=== PATIENT | male | born 1995 | race Caucasian/White ===

== ENCOUNTER 2019-03-29 03:47 | Emergency (ER) | payer OTHER ==
[~2019-03-29] VITALS: Ht 170.2 cm; Wt 57.6 kg
[2019-03-29 03:51] VITALS: BP 133/98
--- NOTE | 2019-03-29 03:57 | NUR ---
PT AMBULATED TO BED #9
--- NOTE | 2019-03-29 04:01 | NUR ---
Dr. Carmona examining patient.
[2019-03-29 04:07] VITALS: BP 133/98
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
--- NOTE | 2019-03-29 04:12 | NUR ---
WRIST AND FOREARM SPLINT PLACED ON PT R WRIST. +CSM
--- NOTE | 2019-03-29 04:13 | NUR ---
EMT AT BEDSIDE.
[2019-03-29] MEDS ORDERED: IBUPROFEN 600 MG TAB PO ONE (04:15)
--- NOTE | 2019-03-29 04:22 | NUR ---
Patient discharged with v/s stable. Written and verbal after care instructions given and explained. Patient alert, oriented and verbalized understanding of instructions. Ambulatory with steady gait. All questions addressed prior to discharge. ID band removed. Patient advised to follow up with PMD. Rx of NAPROSYN 500MG given. Patient educated on indication of medication including possible reaction and side effects. Opportunity to ask questions provided and answered.
== END 2019-03-29 04:22 | disposition home or self-care (01) ==
LOC: MED 03:47
DX: M65.841 Other synovitis and tenosynovitis, right hand (principal)
CPT/HCPCS: 99283

== ENCOUNTER 2019-05-20 13:35 | Emergency (ER) | payer OTHER ==
[~2019-05-20] VITALS: Ht 172.7 cm; Wt 59.0 kg
[2019-05-20 13:44] VITALS: BP 136/81
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
[2019-05-20] MEDS ORDERED: KETOROLAC 30 MG/ML VIAL IM ONE (14:40)
--- NOTE | 2019-05-20 14:51 | NUR ---
PT AMBULATED TO RESTROOM TO PROVIDE URINE SAMPLE
[2019-05-20] MEDS: ACETAMINOPHEN EXTRA STRENGTH 500 MG TAB PO ONE (14:56)
[2019-05-20 15:19] VITALS: BP 136/81
--- NOTE | 2019-05-20 15:19 | NUR ---
Patient discharged with v/s stable. Written and verbal after care instructions given and explained. Pt encouraged to follow up with PCP in 2-3 days. Pt encouraged to rest and take rx medication as needed. Patient alert, oriented and verbalized understanding of instructions. Ambulatory with steady gait. All questions addressed prior to discharge. ID band removed. Patient advised to follow up with PMD. Rx of TYLENOL EXTRA STRENGTH 500MG WAS given. Patient educated on indication of medication including possible reaction and side effects. Opportunity to ask questions provided and answered.
== END 2019-05-20 15:19 | disposition home or self-care (01) ==
LOC: MED 13:35
DX: R10.9 Unspecified abdominal pain (principal); Z88.8 Allergy status to other drugs, medicaments and biological substances; X50.1XXA Overexertion from prolonged static or awkward postures, initial encounter; Y93.89 Activity, other specified; Y92.89 Other specified places as the place of occurrence of the external cause; Y99.8 Other external cause status
CPT/HCPCS: 81002; 99282

== ENCOUNTER 2019-09-17 03:02 | Emergency (ER) | payer OTHER ==
[~2019-09-17] VITALS: Ht 170.2 cm; Wt 59.0 kg
[2019-09-17 03:06] VITALS: BP 125/71
--- NOTE | 2019-09-17 03:15 | NUR ---
PT TAKEN TO BED 7
[2019-09-17] MEDS ORDERED: ACETAMINOPHEN EXTRA STRENGTH 500 MG TAB PO ONE (03:20)
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
--- NOTE | 2019-09-17 04:24 | NUR ---
X-Ray at bedside.
--- NOTE | 2019-09-17 05:10 | NUR ---
PATIENT ALERT AND AWAKE, BREATHING EVEN AND UNLABORED
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
[2019-09-17 05:18] VITALS: BP 124/72
== END 2019-09-17 05:17 | disposition home or self-care (01) ==
LOC: MED 03:02
DX: S90.31XA Contusion of right foot, initial encounter (principal); R07.89 Other chest pain; F12.90 Cannabis use, unspecified, uncomplicated; V49.88XA Car occupant (driver) (passenger) injured in other specified transport accidents, initial encounter; Z88.8 Allergy status to other drugs, medicaments and biological substances; Y93.89 Activity, other specified; Y92.89 Other specified places as the place of occurrence of the external cause; Y99.8 Other external cause status
CPT/HCPCS: 71045; 73620; 99284; Q0092

== ENCOUNTER 2022-02-17 19:01 | Emergency (ER) | payer OTHER ==
[~2022-02-17] VITALS: Ht 167.6 cm; Wt 59.0 kg
[2022-02-17 19:24] VITALS: BP 133/81
--- NOTE | 2022-02-17 19:31 | NUR ---
PT IN BED 6
--- NOTE | 2022-02-17 19:37 | NUR ---
26 Y/O MALE BIB SELF FOR N/V/CHILLS/ HEADACHE/ CHEST PAIN. VOMIT X8 TIMES. PT DENIES DIARRHEA AND CHEST PAIN AND COUGH. PT STATES HEAD ACHE PAIN 8/10. PT STATES HE HASNT EATEN / DRANK ANYTHING ALL DAY. PT IS A/0X4 AND AMBULATORY. PT IS DIAPHORETIC BUT HAS NO FEVER AT THIS TIME.
[2022-02-17] MEDS ORDERED: NACL 0.9% 1,000 ML IV ONE (19:55)
[2022-02-17] MEDS ORDERED: ONDANSETRON 4 MG/2 ML VIAL IVP ONE (19:55)
[2022-02-17] MEDS ORDERED: KETOROLAC 30 MG/ML VIAL IVP ONE (20:00)
[2022-02-17] MEDS ORDERED: ACETAMINOPHEN EXTRA STRENGTH 500 MG TAB PO ONE (20:00)
[2022-02-17 20:46] LABS: BASOPHILS % (AUTO) 0.3 % (0.0-2.0); EOSINOPHILS # (AUTO) 0.1 K/uL (0-0.4); EOSINOPHILS % (AUTO) 0.8 % (0.0-4.0); HEMATOCRIT 42.7 % (36-52); HEMOGLOBIN 14.4 g/dL (12.0-18.0); LYMPHOCYTES # (AUTO) 1.8 K/uL (2.0-11.5); LYMPHOCYTES % (AUTO) 15.8 % (20.5-51.1); MEAN CORPUSCULAR HEMOGLOBIN 30 pg (27-31); MEAN CORPUSCULAR HGB CONC 34 g/dL (33-37); MEAN CORPUSCULAR VOLUME 87.7 fL (80-94); MONOCYTES # (AUTO) 0.7 K/uL (0.8-1.0); MONOCYTES % (AUTO) 6.3 % (1.7-9.3); NEUTROPHILS # (AUTO) 8.7 K/uL (1.8-7.7); NEUTROPHILS % (AUTO) 76.8 % (42.2-75.2); PLATELET COUNT (AUTO) 217 K/uL (140-450); RED BLOOD CELL COUNT(AUTO) 4.87 MIL/uL (4.20-6.10); RED CELL DISTRIBUTION WIDTH 13.7 % (11.6-13.7); WHITE BLOOD COUNT (AUTO) 11.4 K/uL (4.8-10.8)
[2022-02-17 21:00] LABS: ALBUMIN 4.3 g/dL (3.4-5.0); ANION GAP 12.8 (8-16); CARBON DIOXIDE 28.1 mmol/L (21-32); CREATININE 0.9 mg/dL (0.6-1.3); POTASSIUM 3.9 mmol/L (3.5-5.1); TOTAL BILIRUBIN 0.9 mg/dL (0.0-1.0)
--- NOTE | 2022-02-17 21:00 | NUR ---
pt refused tylenol. he said "he could just get that at home." pt pain improved
[2022-02-17 22:16] LABS: APPEARANCE,URINE CLEAR (CLEAR); BILIRUBIN,URINE NEGATIVE (NEGATIVE); BLOOD, URINE NEGATIVE (NEGATIVE); COLOR,URINE YELLOW (YELLOW); LEUKOCYTE ESTERASE ,URINE NEGATIVE (NEGATIVE); NITRITE, URINE NEGATIVE (NEGATIVE); UGLUCOSE NEGATIVE (NEGATIVE)
[2022-02-17] MEDS ORDERED: ACET-2619 PO (22:32)
[2022-02-17] MEDS ORDERED: ONDA-188 PO (22:32)
[2022-02-17 22:34] LABS: BARBITURATE, URINE NEGATIVE ng/ml (NEG <=200); BENZODIAZEPINE, URINE NEGATIVE ng/mL (NEG <=200); CANNABINOID, URINE POSITIVE ng/mL (NEG <=50); COCAINE, URINE NEGATIVE ng/mL (NEG <=300); OPIATE, URINE NEGATIVE ng/mL (NEG <=2000); PHENCYCLIDINE SCREEN,URINE NEGATIVE ng/mL (NEG <=25)
[2022-02-17 23:06] VITALS: BP 110/66
--- NOTE | 2022-02-17 23:06 | NUR ---
Chart checked and completed.
--- NOTE | 2022-02-17 23:06 | NUR ---
Patient discharged with v/s stable. Written and verbal after care instructions given and explained. Patient alert, oriented and verbalized understanding of instructions. Ambulatory with steady gait. All questions addressed prior to discharge. ID band removed. Patient advised to follow up with PMD. Rx of zofran and tylenol given. Opportunity to ask questions provided and answered.
== END 2022-02-17 23:06 | disposition home or self-care (01) ==
LOC: MED 19:01
DX: A08.4 Viral intestinal infection, unspecified (principal); Z20.822 Contact with and (suspected) exposure to COVID-19; F11.90 Opioid use, unspecified, uncomplicated
CPT/HCPCS: 36415; 71045; 80053; 80305; 81003; 83690; 85025; 87426; 87804; 96361; 96374; 96375; 99284; J1885; J2405; J7030

== ENCOUNTER 2023-10-11 16:06 | Emergency (ER) | payer OTHER ==
[~2023-10-11] VITALS: Ht 170.2 cm; Wt 54.4 kg
[~2023-10-11 16:06] MED LIST: ACET-2619 PO; ONDA-188 PO
[2023-10-11 16:14] VITALS: BP 146/76; PULSE 88; RESP 18; TEMP 98.5; O2SAT 99
[2023-10-11] MEDS ORDERED: IBUP-2213 PO (17:43)
[2023-10-11] MEDS ORDERED: BACI-418 TP (17:43)
[2023-10-11] MEDS: IBUPROFEN 600 MG TAB PO ONE (18:00)
[2023-10-11] MEDS ORDERED: BACITRACIN OINT 500 UNITS/GM PKT TP ONE (18:01)
[2023-10-11 18:23] VITALS: BP 137/80; PULSE 78; RESP 16; TEMP 98.3; O2SAT 97
== END 2023-10-11 18:25 | disposition home or self-care (01) ==
LOC: MED 16:06
DX: S63.693A Other sprain of left middle finger, initial encounter (principal); S60.512A Abrasion of left hand, initial encounter; V89.2XXA Person injured in unspecified motor-vehicle accident, traffic, initial encounter; Y93.89 Activity, other specified; Y92.89 Other specified places as the place of occurrence of the external cause; Y99.8 Other external cause status
CPT/HCPCS: 73130; 90471; 90715; 99283